=== PATIENT | male | born 1995 | race Caucasian/White ===

== ENCOUNTER 2020-10-21 22:52 | Emergency (ER) | payer SELFPAY ==
[~2020-10-21] VITALS: Ht 182.9 cm; Wt 90.7 kg
[2020-10-21 23:09] VITALS: BP 128/84
[2020-10-22] MEDS ORDERED: ACETAMINOPHEN WITH CODEINE 300/30MG TABLET PO ONE (00:30)
[2020-10-22] MEDS ORDERED: OXYC-100 MT (01:32)
[2020-10-22] MEDS ORDERED: IBUP-2028 PO (01:32)
== END 2020-10-22 02:33 | disposition home or self-care (01) ==
LOC: ER 22:52
DX: S22.31XA Fracture of one rib, right side, initial encounter for closed fracture (principal); W05.1XXA Fall from non-moving nonmotorized scooter, initial encounter; Y93.89 Activity, other specified; Y92.89 Other specified places as the place of occurrence of the external cause; Y99.8 Other external cause status
CPT/HCPCS: 71101; 93005; 99283